=== PATIENT | male | born 1940 | race Caucasian/White ===

== ENCOUNTER 2017-05-04 15:38 | Emergency (ER) | payer OTHER, BC ==
[~2017-05-04] VITALS: Ht 165.1 cm; Wt 96.3 kg
[~2017-05-04 15:38] MED LIST: ALTACE10 M1 PO; ALTACE10 MG PO; ASPIR 8181 M1 PO; ATENOLOL25 M1 PO; CLOBETASOL PROP50 ML TP; CUTIVATE 0.005%60 GM TP; DAILY VALUE1 EACH PO; DOVONEX 0.005%60 GM PO; FINASTERIDE5 MG PO; GLUCOPHAGE500 MG PO; GLUCOTROL XL5 MG PO; HYDROCHLOROTHIA25 MG PO; LIPITOR40 MG PO; NAPROSYN500 MG PO; NITROSTAT0.4 MG SL; PLAVIX75 MG PO; PROAIR HFA8.5 GM IH; TENORMIN50 MG PO; TRICOR145 MG PO; ULTRAVATE 0.05%15 GM TP; ZETIA10 MG PO; multi vit
[2017-05-04 17:57] LABS: EOSINOPHIL (%) 4.2 % (0-5); EOSINOPHIL COUNT 0.3 K/uL (0-0.3); HEMATOCRIT 41.1 % (38.0-50.0); IMMATURE GRANULOCYTE (%) 0.7 % (0.0-0.7); IMMATURE GRANULOCYTE COUNT 0.1 K/uL; INSTRUMENT ABS NEUTROPHIL CT 4.5 K/uL; LYMPHOCYTE COUNT 1.4 K/uL (1.0-2.8); MCH 30.9 PG (29.0-34.0); MCHC 33.8 G/DL (30.0-36.0); MCV 91.3 FL (86-99); MEAN PLAT.VOLUME 10.4 uM^3 (9.0-12.4); MONOCYTE COUNT 0.5 K/uL (0-0.8); NEUTROPHIL (%) 66.7 % (45-76); NEUTROPHIL COUNT 4.5 K/uL (1.8-6.4); PLATELET COUNT 176 K/uL (156-360); RBC DIS.WIDTH-CV 13.2 % (11.8-14.6); RBC DIS.WIDTH-SD 43.9 % (39-53); WHITE BLOOD COUNT 6.7 K/uL (4.1-10.2)
[2017-05-04 18:06] LABS: CHLORIDE 105 mEq/L (99-109); POTASSIUM 4.2 mEq/L (3.7-5.4); SODIUM 143 mEq/L (136-147)
[2017-05-04 18:07] LABS: MAGNESIUM 1.7 mg/dL (1.3-2.7)
[2017-05-04 18:09] LABS: GLUCOSE 101 mg/dL (70-99)
[2017-05-04 18:10] LABS: ANION GAP 11 MEQ/L (2-14)
[2017-05-04 18:11] LABS: TOTAL BILIRUBIN 0.4 mg/dL (0.0-1.0)
[2017-05-04 18:12] LABS: ALKALINE PHOSPHATASE 59 IU/L (3-129); GFR ESTIMATE (CALCULATED) > 59 mL/min/
[2017-05-04 18:14] LABS: UREA NITROGEN (BUN) 24 mg/dL (9-23)
[2017-05-04 18:15] LABS: CREATINE KINASE 65 IU/L (1-294); TOTAL CK 65 IU/L (1-294)
[2017-05-04 18:18] LABS: TROP-I INTERPRETATION NEGATIVE; TROPONIN-I 0.02 ng/mL (0.0-0.30)
[2017-05-04 18:22] LABS: CK-MB 2.1 ng/mL (0.0-4.9)
[2017-05-04 19:11] LABS: ADD MIUA? YES; BILIRUBIN NEGATIVE; BLOOD NEGATIVE; COLOR STRAW ((YELLOW)); GLUCOSE (STRIP) NEGATIVE; KETONES NEGATIVE; LEUKOCYTES NEGATIVE; NITRITE NEGATIVE; PROTEIN (STRIP) 100; SPECIFIC GRAVITY 1.012 (1.000-1.030); UROBILINOGEN 0.2 MG/DL (0.2-1.0)
[2017-05-04 19:20] LABS: BACTERIA NONE SEEN /HPF; EPITHELIAL CELLS RARE /HPF; MUCUS NONE SEEN /LPF; RED BLOOD CELLS 0-5 /HPF (0-5); UCUL ADDED? NO; WHITE BLOOD CELLS 0-5 /HPF (0-5)
[2017-05-04] MEDS ORDERED: FOLIC ACID1 MG PO (20:29)
[2017-05-04 21:42] VITALS: BP 141/72
== END 2017-05-04 21:44 | disposition home or self-care (01) ==
LOC: EME 15:38
PROVIDERS: Emergency Medicine
DX: R41.0 Disorientation, unspecified (principal); I10 Essential (primary) hypertension; R07.9 Chest pain, unspecified; F03.90 Unspecified dementia, unspecified severity, without behavioral disturbance, psychotic disturbance, mood disturbance, and anxiety; I45.10 Unspecified right bundle-branch block; Z86.73 Personal history of transient ischemic attack (TIA), and cerebral infarction without residual deficits; E78.5 Hyperlipidemia, unspecified; J44.9 Chronic obstructive pulmonary disease, unspecified; E11.9 Type 2 diabetes mellitus without complications; Z79.84 Long term (current) use of oral hypoglycemic drugs; Z79.82 Long term (current) use of aspirin; Z95.1 Presence of aortocoronary bypass graft; Z95.5 Presence of coronary angioplasty implant and graft; Z87.891 Personal history of nicotine dependence
CPT/HCPCS: 70450; 71020; 80053; 81003; 82550; 82553; 83735; 84484; 85025; 93005; 99281; 99285